=== PATIENT | female | born 1985 | race Caucasian/White ===

== ENCOUNTER → 2016-05-25 | Outpatient (CLI) | payer BC ==
[~2016-05-25] MED LIST: MTR600X PO; OXYC-57 PO; PRENTAB26 PO
[2016-05-25 14:36] LABS: HEMATOCRIT 35.1 % (37-47)
[2016-05-25 15:00] LABS: URINE APPEARANCE CLEAR (CLEAR); URINE BILIRUBIN NEG (NEG); URINE COLOR YELLOW; URINE EPITHELIAL CELL AUTO >30 /lpf (0-5); URINE NITRITE NEG (NEG); URINE PH 7.5 (4.5-7.5); UROBILINOGEN NEG (NEG)
[2016-05-25 15:01] LABS: MANUAL MICROSCOPIC REQUIRED? NO; REVIEW REQ? NO
[2016-05-25 16:21] LABS: GTGD 50 Grams
== END | disposition home or self-care (01) ==
LOC: C.LAB1850 12:49
PROVIDERS: ATTEND Obstetrics & Gynecology
DX: Z34.03 Encounter for supervision of normal first pregnancy, third trimester (principal)

== ENCOUNTER → 2016-07-20 | Outpatient (CLI) | payer BC | END | disposition home or self-care (01) | LOC: C.LABSPEC 10:43 | PROVIDERS: ATTEND Obstetrics & Gynecology | DX: Z34.03 Encounter for supervision of normal first pregnancy, third trimester (principal) ==

== ENCOUNTER 2016-07-24 10:34 | Inpatient (IN) | payer BC ==
[~2016-07-24] VITALS: Ht 160 cm; Wt 78.2 kg
[2016-07-24] MEDS ORDERED: MISOPROSTOLTAB 50 MCG TAB PO PRN (11:45)
[2016-07-24 11:50] LABS: HEMATOCRIT 33.9 % (37-47); MEAN CELL VOLUME 88.3 fL (80-100); MEAN CORPUSCULAR HEMOGLOBIN 29.7 pg (25-34); MEAN CORPUSCULAR HGB CONC 33.6 g/dl (32-36); MEAN PLATELET VOLUME 9.5 fL (7.4-10.4); PLATELET COUNT 346 K/uL (130-400); RED BLOOD COUNT 3.84 M/uL (4.2-5.4); WHITE BLOOD COUNT 9.65 K/uL (4.8-10.8)
[2016-07-24] MEDS ORDERED: PRENTAB26 PO (12:32)
[2016-07-24] MEDS: LACTATED RINGER'S 1000ML 1,000 ML IV PRN ×2 (12:55→15:58)
[2016-07-24 13:40] VITALS: Ht 160 cm; Wt 78.2 kg
[2016-07-24] MEDS: LACTATED RINGER'S 1000ML 1,000 ML IV SCH ×2 (14:39→16:54)
[2016-07-24] MEDS ORDERED: BUPIVACAINE 0.25% 30 ML VIAL ONE (16:04)
[2016-07-24] MEDS ORDERED: FENTANYL 2MCG/ML ROPIV 1.25MG/ML 100ML BAG EPI ONE (16:05)
[2016-07-24] MEDS ORDERED: FENTANYL CITRATE INJ 50 MCG/1 ML 2 ML VIAL ONE ×2 (16:05→19:42)
[2016-07-24] MEDS ORDERED: EpHEDrine SULFATE INJ 50 MG/ML AMP ONE (16:05)
[2016-07-24] MEDS ORDERED: NALOXONE HCL INJ 1 MG in SODIUM CHLORIDE 0.9% 1000ML 1,000 ML IV PRN ×2 (16:59→21:00)
[2016-07-24] MEDS ORDERED: LACTATED RINGER'S 1000ML 500 ML IV PRN (16:59)
[2016-07-24] MEDS ORDERED: FENTANYL 2MCG/ML ROPIV 1.25MG/ML 100ML BAG EPI PRN (17:00)
[2016-07-24] MEDS ORDERED: DiphenhydrAMINE HCL 50 MG/ML VIAL IV PRN ×2 (17:00→20:45)
[2016-07-24] MEDS ORDERED: EpHEDrine SULFATE INJ 50 MG/ML AMP IV PRN (17:00)
[2016-07-24] MEDS ORDERED: NALBUPHINE HCL INJ 10 MG/ML AMP IV PRN (17:00)
[2016-07-24] MEDS ORDERED: NALOXONE HCL INJ 0.4 MG/1 ML VIAL/CARP IV PRN (17:00)
[2016-07-24] MEDS ORDERED: CEFAZOLIN IV 2,000 MG in DEXTROSE 5% 50ML 50 ML IV SCH (19:00)
[2016-07-24] MEDS ORDERED: CITRIC ACID/SODIUM CITRATE 15 ML UDC ONE (19:03)
[2016-07-24] MEDS ORDERED: LACTATED RINGER'S 1000ML 1,000 ML IV SCH (19:05)
[2016-07-24] MEDS ORDERED: CITRIC ACID/SODIUM CITRATE 15 ML UDC PO ONE (19:15)
[2016-07-24] MEDS ORDERED: OXYTOCIN INJ 10 UNITS/ML VIAL ONE (19:42)
[2016-07-24] MEDS ORDERED: MoRPHine SULFATE PF 1 MG/ML 10 ML AMP/VIAL ONE (19:42)
[2016-07-24] MEDS ORDERED: PHENYLEPHRINE 100MCG/ML 5ML SYR ONE (19:42)
[2016-07-24] MEDS ORDERED: ONDANSETRON INJ 2 MG/ML 2 ML VIAL ONE (19:52)
[2016-07-24] MEDS ORDERED: CARBOPROST TROMETHAMINE 250 MCG/ML AMP ONE (19:52)
[2016-07-24] MEDS ORDERED: SUPERCREAM 0.870 % 15GM JAR EXT PRN (20:15)
[2016-07-24] MEDS ORDERED: DIPHTHERIA/TETANUS/PERTUSSIS 0.5 ML SYR/VIAL IM. ONE (20:15)
[2016-07-24] MEDS ORDERED: LANOLIN OINT EXT PRN ×2 (20:15)
[2016-07-24] MEDS ORDERED: HYDROCORTISONE ACETATE 25 MG SUPP PR PRN (20:15)
[2016-07-24] MEDS ORDERED: METOCLOPRAMIDE HCL INJ 5 MG/ML 2 ML VIAL ONE (20:15)
--- NOTE | 2016-07-24 20:23 | [facility] Post Operative Brief Note ---
Immediate Operative Summary Operative Date July 24, 2016. Pre-Operative Diagnosis 1)non reassuring heart reat - catergory three Post-Operative Diagnosis 1) non reassuring heart reat - catergory three 2) placental abruption Procedure(s) Performed primary caesarean section Delivery of live at Surgeon Dr. Liban Grider [employer] Supervisor Surgeon(s) Olya Carrillo Estimated Blood Loss 800ml Findings viable male, Apgars 8/9 weight 5lbs 2 oz, body cord, bloody amniotic fluid, art/ venous cord gasses pending, nml appearing tubes and ovaries bilaterally Fluids (cc crystalloids) 1500 Specimens Placenta Cord Blood Cord Gases Drains Evans to gravity Anesthesia Epidural Complication(s) None Disposition L&D
--- NOTE | 2016-07-24 20:30 | OPERATIVE REPORT ---
DATE OF OPERATION: 07/24/2016 PREOPERATIVE DIAGNOSES: 1. Term . 2. Nonreassuring heart rate tracing. 3. Category 3 tracing. POSTOPERATIVE DIAGNOSES: 1. Term . 2. Probable placental abruption. SURGEON: Harjeet Grider MD ANESTHESIA: Epidural. FINDINGS: Viable male with Apgars of 8 and 9, bloody amniotic fluid upon entering the amniotic cavity. Cord clamped and cut. Baby passed off to pediatrics who was in attendance for the delivery. Normal appearing tubes and ovaries bilaterally. Arterial and venous cord gases are pending. PROCEDURE IN DETAIL: The patient was taken to the operating room and after epidural anesthesia was placed in supine position, draped and prepped in the usual fashion. Pfannenstiel type incision was made. Underlying subcutaneous tissue was dissected down to the ventral abdominal fascia, which was nicked and opened in a horizontal manner. Preperitoneal fascia was dissected away until the peritoneal cavity was entered and opened in a vertical manner. The peritoneum overlying the uterus was elevated, opened in a semi-lunar fashion, the inferior margin of which was taken down creating the bladder flap. The uterus was entered sharply and extended in a semilunar fashion manually. Bloody amniotic fluid noted. Baby delivered with a body cord. Cord was clamped and cut and the baby was passed off to pediatrics who was in attendance for the delivery. Cord gases, cord blood samples obtained. Placenta was delivered spontaneously and sent for pathological evaluation. The uterine cavity was wiped clean of any residual blood tissue and/or clot. The uterine incision was closed with 2 layers of 4-0 Vicryl, the first running locking stitch, the second an imbricating stitch. Hemabate 250 mcg was injected directly into the myometrium. The uterus was returned to the pelvic cavity. The pericolic gutters were cleared bilaterally of any blood tissue and/or clot. Sponge and needle count was correct. The rectus muscle was plicated in the midline with a running 2-0 Vicryl stitch. The fascia was closed laterally with a running 0 Vicryl suture. Subcutaneous tissue was irrigated with warm saline and the skin incision was closed with a 4-0 Monocryl subcuticular stitch. Sterile dressing was applied and patient was taken to the recovery room in satisfactory condition. I attest to the content of the Intraoperative Record and any orders documented therein. Any exceptio ns are noted below.
[2016-07-24] MEDS: OXYTOCIN INJ 20 UNITS in LACTATED RINGER'S 1000ML 1,000 ML IV SCH (20:35)
[2016-07-24] MEDS ORDERED: CONTINUE MEDICATION ONE (20:45)
[2016-07-24] MEDS ORDERED: MEPERIDINE HCL 25 MG/ML CARP IV PRN (20:45)
[2016-07-24] MEDS ORDERED: MoRPHine SULFATE PF 1 MG/ML 10 ML AMP/VIAL EPI PRN (20:45)
[2016-07-24] MEDS ORDERED: MoRPHine SULFATE 2 MG/ML CARP IV PRN (20:45)
[2016-07-24] MEDS ORDERED: NO NARCOTICS OR SEDATIVES SCH (20:45)
[2016-07-24] MEDS: KETOROLAC TROMETHAMINE 30 MG/ML VIAL IV. PRN (21:58)
[2016-07-24 23:10] VITALS: BP 121/67; PULSE 85; TEMP 37.1; O2SAT 97
[2016-07-25] VITALS (17 sets, daily range): BP systolic 111–116; BP diastolic 70–76; PULSE 80–98; TEMP 36.6–37.1; O2SAT 95–99
--- NOTE | 2016-07-25 03:14 | Anesthesiology Progress Note ---
Anesthesia Post Op Note Date & Time July 25, 2016 at 03:13 Vital Signs Pain Intensity: 3.0 Vital Signs Past 12 Hours Date Time Temp Pulse Resp B/P Pulse Ox O2 Delivery O2 Flow Rate FiO2 07/25/16 01:00 18 95 07/25/16 00:00 18 96 07/24/16 23:10 37.1 85 18 121/67 97 Room Air 07/24/16 23:10 97 Room Air Notes Mental Status: alert / awake / arousable, participated in evaluation Pt Amnestic to Procedure: Yes Nausea / Vomiting: adequately controlled Pain: adequately controlled Airway Patency, RR, SpO2: stable & adequate BP & HR: stable & adequate Hydration State: stable & adequate Neuraxial Anesthesia: was administered, sensory block is resolving Anesthetic Complications: no major complications apparent
[2016-07-25] MEDS: OXYTOCIN INJ 20 UNITS in LACTATED RINGER'S 1000ML 1,000 ML IV SCH (04:59)
[2016-07-25 06:24] LABS: HEMATOCRIT 30.7 % (37-47); MEAN CELL VOLUME 88.7 fL (80-100); MEAN CORPUSCULAR HEMOGLOBIN 29.5 pg (25-34); MEAN CORPUSCULAR HGB CONC 33.2 g/dl (32-36); MEAN PLATELET VOLUME 9.6 fL (7.4-10.4); PLATELET COUNT 301 K/uL (130-400); RED BLOOD COUNT 3.46 M/uL (4.2-5.4); WHITE BLOOD COUNT 14.85 K/uL (4.8-10.8)
--- NOTE | 2016-07-25 06:52 | Progress Note ---
Subjective July 25, 2016. Subjective conversation w/ patient, physical exam, lab review Ambulation: limited ambulation Voiding: nj catheter in place Passing Gas: Yes Diet Tolerance: Regular Diet Lochia: Small Feeding Type: Breast Feeding Pain: improves with med Comment: Patient was seen at the bedside. No acute event overnight. Review of Systems Constitutional: No fever Respiratory: No cough, No shortness of breath Cardiac: No chest pain Breast: No breast lump Abdomen: No nausea, No pain, No vomiting Denies headache Objective Vital Signs Date Time Temp Pulse Resp B/P Pulse Ox O2 Delivery O2 Flow Rate FiO2 07/25/16 06:15 16 97 07/25/16 05:00 16 98 07/25/16 04:00 20 95 07/25/16 03:15 36.9 80 18 116/76 96 Room Air 07/25/16 03:15 18 96 07/25/16 02:00 18 96 07/25/16 01:00 18 95 07/25/16 00:00 18 96 07/24/16 23:10 37.1 85 18 121/67 97 Room Air 07/24/16 23:10 97 Room Air Physical Exam General Appearance: WELL-APPEARING, WD/WN, NO APPARENT DISTRESS Respiratory/Chest: chest non-tender, lungs clear, normal breath sounds, no respiratory distress Cardiovascular: regular rate, rhythm Abdomen: normal bowel sounds, non tender, soft Fundus: Firm, Tender, Relation to Umbilicus (1cm below U) Incision Description: Clean, Dry & Intact Extremities: non-tender, no pedal edema, no calf tenderness Laboratory Results Last 24 Hours Test 07/24/16 11:43 07/24/16 16:08 07/25/16 06:10 White Blood Count 9.65 K/uL 14.85 K/uL Red Blood Count 3.84 M/uL 3.46 M/uL Hemoglobin 11.4 g/dL 10.2 g/dL Hematocrit 33.9 % 30.7 % Mean Corpuscular Volume 88.3 fL 88.7 fL Mean Corpuscular Hemoglobin 29.7 pg 29.5 pg Mean Corpuscular Hemoglobin Concent 33.6 g/dl 33.2 g/dl RDW Standard Deviation 45.5 fL 46.2 fL RDW Coefficient of Variation 14.0 % 14.2 % Platelet Count 346 K/uL 301 K/uL Mean Platelet Volume 9.5 fL 9.6 fL Medications Current Inpatient Medications Medications (Trade) Dose Ordered Sig/Susie Route Start Time Stop Time Status Last Admin Dose Admin Lactated Ringer's (Lr 1000ml) 1,000 ml @ 125 mls/hr Q8H IV 07/24/16 11:33 07/26/16 11:32 07/24/16 16:54 125 MLS/HR Misoprostol (Cytotec Tab) 50 mcg Q4HWA PRN PO 07/24/16 11:45 08/23/16 11:44 07/24/16 12:13 50 MCG Naloxone HCl (Narcan Inj) 0.1 mg UD PRN IV 07/24/16 17:00 07/25/16 14:00 Ephedrine Sulfate (EpHEDrine SULFATE INJ) 10 mg Q5M PRN IV 07/24/16 17:00 07/25/16 14:00 Diphenhydramine HCl (Benadryl Inj) 25 mg Q6H PRN IV 07/24/16 17:00 07/25/16 14:00 Nalbuphine HCl 5 mg 5 mg Q10M PRN IV 07/24/16 17:00 07/25/16 14:00 Oxytocin/Lactated Ringer's (Pitocin Inj/Lr 1000ml) 1,002 ml @ 125 mls/hr Q8H1M IV 07/24/16 20:30 07/25/16 12:31 07/25/16 04:59 125 MLS/HR Ketorolac Tromethamine (Toradol Inj) 30 mg Q6H PRN IV. 07/25/16 14:01 07/30/16 14:00 Oxycodone/ Acetaminophen (Percocet 5-325mg Tab) 1 tab Q4H PRN PO 07/25/16 14:01 08/08/16 14:00 Oxycodone/ Acetaminophen (Percocet 5-325mg Tab) 2 tab Q4H PRN PO 07/25/16 14:01 08/08/16 14:00 Ondansetron HCl (Zofran Inj) 4 mg Q4H PRN IV 07/25/16 14:01 08/24/16 14:00 Prenat Multivit/ [place]/Iron/Folic Ac ( Vitamin Tab) 1 tab DAILY PO 07/25/16 08:00 08/24/16 07:59 Magnesium Hydroxide (Milk Of Magnesia Susp) 30 ml HS PO 07/25/16 22:00 08/24/16 21:59 Ferrous Sulfate (Feosol Tab) 325 mg DAILY PO 07/25/16 08:00 08/24/16 07:59 Cocaine HCl (Supercream 0.870% Cr) BID PRN EXT 07/24/16 20:15 08/07/16 20:14 Lanolin (Lanolin Oint) PRN PRN EXT 07/24/16 20:15 08/23/16 20:14 Hydrocortisone Acetate (Anusol Hc Supp) 25 mg BID PRN [place] 07/24/16 20:15 08/23/16 20:14 Diphenhydramine HCl (Benadryl Cap) 25 mg QID PRN PO 07/25/16 14:01 08/24/16 14:00 Diphenhydramine HCl (Benadryl Inj) 25 mg QID PRN IV 07/25/16 14:01 08/24/16 14:00 Senna (Senokot Tab) 17.2 mg HS PO 07/25/16 22:00 08/24/16 21:59 Ketorolac Tromethamine (Toradol Inj) 30 mg Q6H PRN IV. 07/24/16 20:45 07/25/16 14:00 07/24/16 21:58 30 MG Meperidine HCl (Demerol Inj) 25 mg Q15M PRN IV 07/24/16 20:45 07/25/16 14:00 Miscellaneous Information (Dc Intraspinal Morphine) 1 ea 1400 ONCE N/A 07/25/16 14:00 07/25/16 14:01 Miscellaneous Information (No Narcotics Or Sedatives) 1 ea UD N/A 07/24/16 20:45 07/25/16 14:00 Diphenhydramine HCl (Benadryl Cap) 50 mg HS PRN PO 07/24/16 20:45 07/25/16 14:00 Diphenhydramine HCl (Benadryl Inj) 25 mg HS PRN IV 07/24/16 20:45 07/25/16 14:00 Morphine Sulfate 2 mg 2 mg Q6H PRN IV 07/24/16 20:45 07/25/16 14:00 Naloxone HCl/ Sodium Chloride (Narcan Inj/Nss 1000ml) 1,002.5 ml @ 50 mls/hr Q20H3M PRN IV 07/24/16 21:00 07/25/16 14:00 Assessment and Plan Post-Op Day#: 1 Continue Routine Care: A/P: This is a 31 y/o female, , s/p normal . Limited ambulation due to nj. Plan: - Vitals signs are reviewed and WNL (Tmax 37.1 ) - Last Hgb is 10.2 - Blood type O+, GBS neg, Rubella Immune - Routine care - Encourage ambulation, monitor and control pain with medication as needed , continue with regular diet as tolerated and monitor lochia - Stool softeners and sitz bath recommended - Encourage breast feeding and educate about breast feeding Resident Physician Supervision Note: I interviewed and examined the patient. Discussed with Dr. Donnelly and agree with findings and plan as documented in the note. Any exceptions or clarifications are listed here: Discussed surgery and finding with patient Documented By: Harjeet Grider
[2016-07-25 07:44] LABS: BASO % 0.2 %; BASO ABS # 0.03 K/uL (0-0.2); COMPLETE YES; EOS % 0.6 %; IG% 0.3 %; LYMPH % 16.6 %; LYMPH ABS # 2.47 K/uL (1.2-3.4); MONO % 5.1 %; NEUT % 77.2 %; TOXIC GRANULATION 1+
[2016-07-25] MEDS: FERROUS SULFATE 325 MG TAB PO SCH (08:00)
[2016-07-25] MEDS: PRENATAL VITAMIN TAB PO SCH (08:00)
[2016-07-25] MEDS: KETOROLAC TROMETHAMINE 30 MG/ML VIAL IV. PRN (08:36)
[2016-07-25] MEDS ORDERED: DC INTRASPINAL MORPHINE ONE (14:00)
[2016-07-25] MEDS ORDERED: ONDANSETRON INJ 2 MG/ML 2 ML VIAL IV PRN (14:01)
[2016-07-25] MEDS ORDERED: DiphenhydrAMINE HCL 50 MG/ML VIAL IV PRN (14:01)
[2016-07-25] MEDS ORDERED: KETOROLAC TROMETHAMINE 30 MG/ML VIAL IV. PRN (14:01)
[2016-07-25] MEDS ORDERED: OXYCODONE/ACETAMINOPHEN 5-325 TAB PO PRN (14:01)
[2016-07-25] MEDS: OXYCODONE/ACETAMINOPHEN 5-325 TAB PO PRN (19:52)
[2016-07-25] MEDS: IBUPROFEN 600 MG TAB PO PRN (20:25)
[2016-07-25] MEDS: SENNA 8.6 MG TAB PO SCH (21:11)
[2016-07-25] MEDS: MAGNESIUM HYDROXIDE SUSP 30 ML UDC PO SCH (21:11)
[2016-07-26] MEDS: OXYCODONE/ACETAMINOPHEN 5-325 TAB PO PRN ×5 (00:41→20:35)
[2016-07-26] MEDS: IBUPROFEN 600 MG TAB PO PRN ×5 (00:41→20:33)
[2016-07-26 00:43] VITALS: BP 116/74; PULSE 84; TEMP 36.4; O2SAT 97
[2016-07-26 05:48] LABS: HEMATOCRIT 26.4 % (37-47)
--- NOTE | 2016-07-26 07:34 | Progress Note ---
Subjective July 26, 2016. Subjective conversation w/ patient, physical exam, lab review Ambulation: ambulating normally Voiding: no voiding problems Passing Gas: Yes Diet Tolerance: Regular Diet Lochia: Small Feeding Type: Breast Feeding Pain: improves with med Comment: Patient was seen at the bedside. No acute event overnight. Review of Systems Constitutional: No fever Respiratory: No cough, No shortness of breath Cardiac: No chest pain Breast: No breast lump Abdomen: No nausea, No pain, No vomiting Female : No dysuria, No urinary frequency Denies headache Objective Vital Signs Date Time Temp Pulse Resp B/P Pulse Ox O2 Delivery O2 Flow Rate FiO2 07/26/16 00:43 36.4 84 18 116/74 97 Room Air 07/26/16 00:43 Room Air 07/25/16 16:20 36.6 86 18 111/70 96 Room Air 07/25/16 15:15 96 Room Air 07/25/16 14:00 16 99 07/25/16 13:00 17 98 07/25/16 12:00 36.7 95 18 116/74 97 Room Air 07/25/16 12:00 18 97 07/25/16 11:00 18 95 07/25/16 10:00 18 95 07/25/16 09:00 16 98 07/25/16 08:00 Room Air 07/25/16 08:00 16 97 07/25/16 08:00 37.1 98 16 113/76 97 Room Air Physical Exam General Appearance: WELL-APPEARING, WD/WN, NO APPARENT DISTRESS Respiratory/Chest: chest non-tender, lungs clear, normal breath sounds, no respiratory distress Cardiovascular: regular rate, rhythm Abdomen: normal bowel sounds, non tender, soft Fundus: Firm, Relation to Umbilicus (about 1-2cm below U) Incision Description: Clean, Dry & Intact Extremities: non-tender, no pedal edema, no calf tenderness Laboratory Results Last 24 Hours Test 07/26/16 05:37 Hemoglobin 9.2 g/dL Hematocrit 26.4 % Medications Current Inpatient Medications Medications (Trade) Dose Ordered Sig/Susie Route Start Time Stop Time Status Last Admin Dose Admin Lactated Ringer's (Lr 1000ml) 1,000 ml @ 125 mls/hr Q8H IV 07/24/16 11:33 07/26/16 11:32 07/24/16 16:54 125 MLS/HR Misoprostol (Cytotec Tab) 50 mcg Q4HWA PRN PO 07/24/16 11:45 08/23/16 11:44 07/24/16 12:13 50 MCG Ketorolac Tromethamine (Toradol Inj) 30 mg Q6H PRN IV. 07/25/16 14:01 07/30/16 14:00 07/25/16 14:52 30 MG Oxycodone/ Acetaminophen (Percocet 5-325mg Tab) 1 tab Q4H PRN PO 07/25/16 14:01 08/08/16 14:00 07/26/16 04:44 1 TAB Oxycodone/ Acetaminophen (Percocet 5-325mg Tab) 2 tab Q4H PRN PO 07/25/16 14:01 08/08/16 14:00 Ondansetron HCl (Zofran Inj) 4 mg Q4H PRN IV 07/25/16 14:01 08/24/16 14:00 Prenat Multivit/ [place]/Iron/Folic Ac ( Vitamin Tab) 1 tab DAILY PO 07/25/16 08:00 08/24/16 07:59 Magnesium Hydroxide (Milk Of Magnesia Susp) 30 ml HS PO 07/25/16 22:00 08/24/16 21:59 Ferrous Sulfate (Feosol Tab) 325 mg DAILY PO 07/25/16 08:00 08/24/16 07:59 Cocaine HCl (Supercream 0.870% Cr) BID PRN EXT 07/24/16 20:15 08/07/16 20:14 Lanolin (Lanolin Oint) PRN PRN EXT 07/24/16 20:15 08/23/16 20:14 Hydrocortisone Acetate (Anusol Hc Supp) 25 mg BID PRN [place] 07/24/16 20:15 08/23/16 20:14 Diphenhydramine HCl (Benadryl Cap) 25 mg QID PRN PO 07/25/16 14:01 08/24/16 14:00 Diphenhydramine HCl (Benadryl Inj) 25 mg QID PRN IV 07/25/16 14:01 08/24/16 14:00 Senna (Senokot Tab) 17.2 mg HS PO 07/25/16 22:00 08/24/16 21:59 Ibuprofen (Motrin Tab) 600 mg Q4H PRN PO 07/25/16 20:00 08/24/16 19:59 07/26/16 04:44 600 MG Assessment and Plan Post-Op Day#: 2 Continue Routine Care: A/P: This is a 31 y/o female, , s/p . She is ambulating and clinically stable. Plan: - Vitals signs are reviewed and WNL (Tmax 37.1 ) - Last Hgb is 9.2 - Blood type O+, GBS neg, Rubella Immune - Routine care - Encourage ambulation, monitor and control pain with medication as needed , continue with regular diet as tolerated and monitor lochia - Stool softeners and sitz bath recommended - Encourage breast feeding and educate about breast feeding Resident Physician Supervision Note: I interviewed and examined the patient. Discussed with Dr. Donnelly and agree with findings and plan as documented in the note. Any exceptions or clarifications are listed here: Doing well. Routine care. Documented By: Claire Lloyd
[2016-07-26] MEDS: FERROUS SULFATE 325 MG TAB PO SCH (08:38)
[2016-07-26] MEDS: PRENATAL VITAMIN TAB PO SCH (08:38)
[2016-07-26 09:00] VITALS: BP 125/80; PULSE 96; TEMP 36.7; O2SAT 100
[2016-07-26 15:30] VITALS: BP 113/70; PULSE 79; TEMP 36.7; O2SAT 98
[2016-07-26] MEDS: MAGNESIUM HYDROXIDE SUSP 30 ML UDC PO SCH (21:57)
[2016-07-26] MEDS: SENNA 8.6 MG TAB PO SCH (22:00)
[2016-07-26 23:45] VITALS: BP 108/70; PULSE 77; TEMP 36.9
[2016-07-27] MEDS: IBUPROFEN 600 MG TAB PO PRN ×3 (02:40→12:37)
[2016-07-27] MEDS: OXYCODONE/ACETAMINOPHEN 5-325 TAB PO PRN ×3 (02:41→12:36)
[2016-07-27] MEDS ORDERED: OXYC-57 PO (06:58)
[2016-07-27] MEDS ORDERED: MTR600X PO (06:58)
--- NOTE | 2016-07-27 07:06 | Discharge Instructions ---
Discharge Instructions Date of Service July 25, 2016. Admission Reason for Admission: Check Rupture Discharge Discharge Diagnosis / Problem: s/p Discharge Goals Goal(s): Routine recovery after Medications Continue Dispensed Medications: supercream, dermaplast, tucks, lansinoh Activity Recommendations Activity Limitations: as noted below . Instructions / Follow-Up Instructions / Follow-Up ACTIVITY RECOMMENDATIONS: * Gradual return to full activity over the next 2-3 weeks. * No lifting - nothing heavier than baby over the next 2-3 weeks. * Do not engage in vigorous exercise, sexual activity or sports until cleared by your physician. * Do not drive or operate any motorized equipment until cleared by your physician. * You may shower/bathe daily. MEDICATIONS: For discomfort or pain, you may use Acetaminophen (Tylenol), Ibuprofen (Advil), or Naproxen (Aleve) following the package directions. For constipation you may use Colace following the package directions. BREAST CARE: If you are not breast feeding: * Wear a supportive bra 24 hours a day for one to two weeks. * Avoid stimulating your breasts and nipples as much as possible during the first few weeks after delivery. * When taking a shower, have the warm water hit your back, not breasts. * When your breasts feel full, apply ice packs. Usually three to four times a day helps ease the discomfort. * Take a mild pain medication (Tylenol / Motrin) when you are uncomfortable. If breast feeding: * Use breast milk to lubricate nipples. Lansinoh cream may be used for sore nipples. You do not need to remove cream prior to breast feeding. If using a different brand of cream, check the label for directions regarding removal of cream prior to nursing. * Wear a supportive bra. * If having problems with breasts or breast feeding, call a health care consultant or your health care provider. SPECIAL CARE INSTRUCTIONS: When you are discharged from the hospital, it is important for you to follow the instructions listed below: * During the first week at home, you should be able to care for yourself and your baby. In addition, the usual light household activities are encouraged. * Limit your activities to the way you feel. Do not try to clean the house or move furniture. Be sensible. * If you actively engage in sports and have done so up until the time of your delivery, you may resume these activities as soon as you feel able. This may take up to one month or even longer. Use good judgment. * Continue to take your vitamins for at least six weeks after the of your baby. * Your diet need not be limited unless you were on a special diet before your delivery. Breast-feeding mothers need around 2500 calories per day and at least 64-80 ounces of fluid per day (8 to 10 glasses). * You should eat foods from the four major food groups. Crash diets or fad diets are to be avoided. Eating lean meats, fresh fruits and vegetables, low-fat dairy products, high fiber foods and a regular exercise program, will help you get back to your pre- weight without putting your health at risk. * Constipation is sometimes a problem after delivery. Take a mild laxative as needed. If breast feeding, Milk of Magnesia is acceptable to use. You may use a suppository or Fleets enema. * A daily shower or tub bath is suggested. Wash incision daily with warm soapy water and pat dry. It doesn't need to be covered unless drainage is present. * A bloody vaginal discharge will usually continue until around four weeks . A small amount of bleeding may continue for as long as six weeks. Vaginal discharge changes from the bright red bleeding after delivery to pink then brownish and finally yellowish-pink before becoming white and disappearing. * Bleeding may increase with activity. Your first period may come in 4-8 weeks. If you are breast feeding, your period may be delayed even longer. * [place] (sex) can begin whenever both you and your partner feel comfortable and do not have any form of genital infection. It is recommended that you wait at least six weeks for internal and external healing to occur. If you have questions, please talk to your health care practitioner. A condom should be used to prevent infection and . * Foreplay, gentle intercourse and lubrication is very important the first several times to prevent pain. A water-based lubricant such as K-Y jelly or Astroglide may be used. * If you have RH negative blood and your baby is RH positive, you will receive RHOGAM by injection prior to discharge. The nurse will give you a card to keep with you that has the date and place that you received RHOGAM after delivery. * During your care, you had a Rubella screen done to check for the presence of rubella antibodies in your blood. If your test was negative, you will receive a Rubella vaccine prior to discharge. This vaccine may cause a fever, soreness at the injection site and flu-like symptoms. If these symptoms persist, notify your health care practitioner. is not advised for one month after a Rubella vaccine. * Verbalizes understanding of car seat law as reviewed with patient nursing. * Car Seat hand-out given and reviewed with patient by nursing. * Shaken baby information reviewed with patient by nursing. Call you doctor if: * Heavy bleeding (saturating several pads an hour) or passing clots the size of your fist. * A fever >101 degrees F (38.3 degrees C) on two occasions four hours apart and /or chills. * Unusual pain in the pelvic or vaginal areas. * Call the doctor for any increased redness, drainage or swelling around the incision and any pain unrelieved by prescribed pain medication. * "Baby Blues" lasting longer than two weeks. If you have any questions or concerns, call your health care practitioner at . FOLLOW UP VISIT: * Please call the office at to schedule a 6 week examination. It is important you keep this appointment. It is important for you to make arrangements for either yearly or twice yearly check-ups thereafter. Current Hospital Diet Patient's current hospital diet: Clear Liquid Diet Discharge Diet Recommended Diet: Regular Diet Procedures Procedures Performed: primary caesarean section Delivery of live at Pending Studies Studies pending at discharge: no Medical Emergencies . Who to Call and When: Medical Emergencies: If at any time you feel your situation is an emergency, please call [phone] immediately. . Non-Emergent Contact Non-Emergency issues call your: Air Moving Technician Call Non-Emergent contact if: you have a fever, temperature is above 101 . . "Provider Documentation" section prepared by Abril Donnelly. . VTE Core Measure Inpt VTE Proph given/why not?: Treatment not indicated
--- NOTE | 2016-07-27 07:08 | Progress Note ---
Subjective July 27, 2016. Subjective conversation w/ patient, physical exam, lab review Ambulation: ambulating normally Voiding: no voiding problems Passing Gas: Yes Diet Tolerance: Regular Diet Lochia: Small Feeding Type: Breast Feeding Pain: improves with med Comment: Patient was seen at the bedside. No acute event overnight. Review of Systems Constitutional: No fever Respiratory: No cough, No shortness of breath Cardiac: No chest pain Breast: No breast lump Abdomen: No nausea, No pain, No vomiting Female : No dysuria, No urinary frequency Denies headache Objective Vital Signs Date Time Temp Pulse Resp B/P Pulse Ox O2 Delivery O2 Flow Rate FiO2 07/26/16 23:45 Room Air 07/26/16 23:45 36.9 77 20 108/70 Room Air 07/26/16 15:30 36.7 79 18 113/70 98 Room Air 07/26/16 15:30 98 Room Air 07/26/16 09:00 36.7 96 16 125/80 100 Room Air 07/26/16 09:00 100 Room Air Physical Exam General Appearance: WELL-APPEARING, WD/WN, NO APPARENT DISTRESS Respiratory/Chest: chest non-tender, lungs clear, normal breath sounds, no respiratory distress Cardiovascular: regular rate, rhythm Abdomen: normal bowel sounds, non tender, soft Fundus: Firm, Relation to Umbilicus (1cm below U) Incision Description: Clean, Dry & Intact Extremities: non-tender, no pedal edema, no calf tenderness Medications Current Inpatient Medications Medications (Trade) Dose Ordered Sig/Susie Route Start Time Stop Time Status Last Admin Dose Admin Misoprostol (Cytotec Tab) 50 mcg Q4HWA PRN PO 07/24/16 11:45 08/23/16 11:44 07/24/16 12:13 50 MCG Ketorolac Tromethamine (Toradol Inj) 30 mg Q6H PRN IV. 07/25/16 14:01 07/30/16 14:00 07/25/16 14:52 30 MG Oxycodone/ Acetaminophen (Percocet 5-325mg Tab) 1 tab Q4H PRN PO 07/25/16 14:01 08/08/16 14:00 07/27/16 02:41 1 TAB Oxycodone/ Acetaminophen (Percocet 5-325mg Tab) 2 tab Q4H PRN PO 07/25/16 14:01 08/08/16 14:00 Ondansetron HCl (Zofran Inj) 4 mg Q4H PRN IV 07/25/16 14:01 08/24/16 14:00 Prenat Multivit/ [place]/Iron/Folic Ac ( Vitamin Tab) 1 tab DAILY PO 07/25/16 08:00 08/24/16 07:59 07/26/16 08:38 1 TAB Magnesium Hydroxide (Milk Of Magnesia Susp) 30 ml HS PO 07/25/16 22:00 08/24/16 21:59 07/26/16 21:57 30 ML Ferrous Sulfate (Feosol Tab) 325 mg DAILY PO 07/25/16 08:00 08/24/16 07:59 Cocaine HCl (Supercream 0.870% Cr) BID PRN EXT 07/24/16 20:15 08/07/16 20:14 Lanolin (Lanolin Oint) PRN PRN EXT 07/24/16 20:15 08/23/16 20:14 Hydrocortisone Acetate (Anusol Hc Supp) 25 mg BID PRN [place] 07/24/16 20:15 08/23/16 20:14 Diphenhydramine HCl (Benadryl Cap) 25 mg QID PRN PO 07/25/16 14:01 08/24/16 14:00 Diphenhydramine HCl (Benadryl Inj) 25 mg QID PRN IV 07/25/16 14:01 08/24/16 14:00 Senna (Senokot Tab) 17.2 mg HS PO 07/25/16 22:00 08/24/16 21:59 Ibuprofen (Motrin Tab) 600 mg Q4H PRN PO 07/25/16 20:00 08/24/16 19:59 07/27/16 02:40 600 MG Assessment and Plan Post-Op Day#: 3 Continue Routine Care: A/P: This is a 31 y/o female, , s/p . She is ambulating and clinically stable to discharge. - Vital signs are reviewed and WNL (Tmax 36.9 ) - Last Hgb 9.2 - Blood type O+, GBS neg, Rubella Immune - No signs of depression. - Routine care - Discussed resting, feeding, pain control, mastitis, control, follow up in 6 weeks and reasons to call sooner, if necessary. - Continue with pain medication as needed, and continue vitamins. - Encourage breast feeding and educate about breast feeding - Patient understands and keen for home. - Plan to discharge home Resident Physician Supervision Note: I interviewed and examined the patient. Discussed with Dr. Donnelly and agree with findings and plan as documented in the note. Any exceptions or clarifications are listed here: [None] Documented By: Ethan Diggs
[2016-07-27 08:00] VITALS: BP 117/77; PULSE 67; TEMP 36.7; O2SAT 98
[2016-07-27] MEDS: FERROUS SULFATE 325 MG TAB PO SCH ×2 (08:00→08:09)
[2016-07-27] MEDS: PRENATAL VITAMIN TAB PO SCH (08:09)
[2016-07-27 13:00] VITALS: BP_DIAS 77; PULSE 67; TEMP 36.7
--- NOTE | 2016-07-28 18:06 | DISCHARGE SUMMARY ---
NARRATIVE DISCHARGE SUMMARY ADMITTING DIAGNOSES: 1. Term at 37 weeks' gestational age. 2. Spontaneous premature rupture of membranes. DISCHARGE DIAGNOSES: 1. Same. 2. Nonreassuring heart rate tracing. 3. Probable abruption. PROCEDURES PERFORMED: Primary low cervical transverse section. DISCHARGE MEDICATIONS: 1. Percocet 5/325 1-2 p.o. q. 4-6 hours p.r.n. pain. 2. Motrin 600 mg p.o. q. 6 hours p.r.n. pain. ADMISSION HISTORY: The patient is a 31-year-old 1, para 0 with an EDC of 14 August, who presented at 37 weeks' gestational age with spontaneous rupture of membranes. The patient awoke the morning of admission and had a big gush of fluid, she described the fluid as clear, she denied rupture of membranes or vaginal bleeding. The patient then had a benign course, her blood type O positive, antibody negative, rubella immune, hepatitis B negative. She declined a quad screen. She had a normal 1 hour Glucola x2 and a negative third trimester beta strep culture. ADMISSION PHYSICAL EXAMINATION: GENERAL: Showed a pleasant gravid female in no acute distress. VITAL SIGNS: Blood pressure 110/70. HEENT: Unremarkable. NECK: Supple. LUNGS: Clear. HEART: With a regular rhythm and rate. ABDOMEN: Gravid, vertex, positive heart tones, estimated weight of 6 pounds. PELVIC: Showed the cervix to be fingertip dilated, 50% effaced, minus 2 station with a positive AmniSure. ADMISSION LABORATORY VALUES: Showed an H\T\H of 11.4 and 33.9. HOSPITAL COURSE: The heart rate tracing was category 1 upon admission with spontaneous ruptured membranes. The cervix was felt to be unfavorable and induction was indicated. The patient was given Cytotec 50 mcg p.o. to be repeated every 4 hours as needed for contractions. Over the next 3 hours, the patient began to have stronger contractions, tracing became category 2 with several decels at times, during the monitoring. There was difficulty picking up contractions along with heart tones and a decision was made to go with internal monitors. An intrauterine pressure catheter and a scalp electrode was applied. Following application, a moderate amount of vaginal bleeding was noted after the placement of the internal monitors, this was felt to be more than what was consistent with cervical change. Over the next 2 hours, the patient had an epidural placed because her contractions increased in intensity, the internal pressure catheter and monitor needed to be replaced, because of a malfunction of the initial there continued to be bleeding with minimal cervical change. The patient then began to have cervical dilatation and the contractions were greater than 50 mmHg pressure per contraction. She progressed to 5-6 cm, but at this time began to develop persistent decelerations with contractions. The tracing was felt to be category 3. She was felt to be remote from delivery and with a nonreassuring heart rate tracing, the decision was made to proceed with a section. The patient was taken to the operating room where she underwent the low cervical transverse section. She delivered a viable male infant with Apgars of 8 and 9, bloody amniotic fluid was noted upon entering the amniotic cavity. Postoperatively, the patient did well. Evans catheter was removed on the first postoperative day. H\T\H came back at 10.2 and 30.7. On the second postoperative day, H\T\H was stable at 9.2 and 26.4. She was discharged home on the third postoperative day with the routine discharge instructions and the prescriptions for the medications as listed as above. She will follow up in the office for a check but as always she has been instructed to call with any questions, problems or difficulties.
== END 2016-07-27 15:13 | disposition home or self-care (01) | DRG 765 ==
LOC: C.OPB 10:34 → C.LD 10:35 → C.OPB 11:34 → C.OBG 07-25 00:35 → EDSTATUS 08-14 10:33
PROVIDERS: ADMIT Obstetrics & Gynecology; ATTEND Obstetrics & Gynecology
PROC: 10D00Z1 Extraction of Products of Conception, Low, Open Approach (ICD-10-PCS; principal; 2016-07-24 19:19)
PROC: 10H07YZ Insertion of Other Device into Products of Conception, Via Natural or Artificial Opening (ICD-10-PCS; principal; 2016-07-24 19:19)
DX: O42.92 Full-term premature rupture of membranes, unspecified as to length of time between rupture and onset of labor (principal); O45.93 Premature separation of placenta, unspecified, third trimester; O69.2XX0 Labor and delivery complicated by other cord entanglement, with compression, not applicable or unspecified; O76 Abnormality in fetal heart rate and rhythm complicating labor and delivery; Z3A.37 37 weeks gestation of pregnancy; Z37.0 Single live birth

== ENCOUNTER → 2016-12-13 | Outpatient (CLI) | payer BC ==
[2016-12-15 00:34] LABS: CHLAMYDIA TRACH RNA*** NOT DETECTED (NOT DETECTED); GC (NEIS GONORRHOEAE)RNA** NOT DETECTED (NOT DETECTED)
== END | disposition home or self-care (01) ==
LOC: C.LABSPEC 11:25
PROVIDERS: ATTEND Physician Assistant
DX: Z30.430 Encounter for insertion of intrauterine contraceptive device (principal)

== ENCOUNTER → 2016-12-13 | Outpatient (CLI) | payer BC ==
[2016-12-13 08:41] LABS: PREG INTERNAL NEGATIVE QC NEG CLEAR BACKGROUND; PREG INTERNAL POSITIVE QC POS CONTROL LINE
== END | disposition home or self-care (01) ==
LOC: C.LAB 08:18
PROVIDERS: ATTEND Physician Assistant
DX: Z30.430 Encounter for insertion of intrauterine contraceptive device (principal)